=== PATIENT | male | born 1985 | race Caucasian/White ===

== ENCOUNTER 2017-12-02 20:25 | Emergency (ER) | payer BC ==
[~2017-12-02] VITALS: Ht 180.3 cm; Wt 129.0 kg
[2017-12-02] MEDS ORDERED: HYDR-3705 PO (20:32)
[2017-12-02] MEDS ORDERED: IBUPROFEN 800 MG TABLET PO ONE (21:15)
[2017-12-02 22:07] VITALS: BP 141/87
== END 2017-12-02 22:24 | disposition home or self-care (01) ==
LOC: EMS 20:27
DX: M79.661 Pain in right lower leg (principal); M25.471 Effusion, right ankle
CPT/HCPCS: 93971; 99284